=== PATIENT | female | born 1995 | race Caucasian/White ===

== ENCOUNTER → 2023-01-01 23:16 | Outpatient (CLI) | payer MEDICAID, SELFPAY ==
[2023-01-01 19:26] LABS: Basophils # 0.1 K/mm3 (0-0.2); Basophils % 0.7 % (0.1-2.0); Eosinophils # 0.2 K/mm3 (0.0-0.4); Eosinophils % 1.8 % (0.1-12.0); Hematocrit 42.5 % (37.0-47.0); Lymphocytes # 2.6 K/mm3 (0.7-4.5); Lymphocytes % 27.4 % (10-50); Mean Corpuscular HGB Conc 32.9 g/dL (31.8-35.4); Mean Corpuscular Hemoglobin 29.6 pg (27.0-31.2); Mean Platelet Volume 8.2 fl (7.4-10.4); Monocytes # 0.5 K/mm3 (0.1-1.0); Neutrophils # 6.2 K/mm3 (1.8-7.8); Neutrophils % 65.2 % (37.0-80.0); Platelet Count 356 K/mm3 (142-424); Red Blood Count 4.73 M/mm3 (4.20-5.40); Red Cell Distribution Width 14.1 % (11.5-17.5); White Blood Count 9.5 K/mm3 (4.8-10.8)
[2023-01-01 19:58] LABS: Alanine Aminotransferase 24 U/L (12-78); Albumin Level 4.9 g/dl (3.5-5.0); Albumin/Globulin Ratio 1.6 (1.1-1.8); Alkaline Phosphatase 74 U/L (38-126); Aspartate Amino Transferase 35 U/L (14-36); Bilirubin,Total 0.5 mg/dl (0.2-1.3); Blood Urea Nitrogen 13 mg/dl (7-17); Carbon Dioxide 29 mmol/L (22.0-30.0); Chloride 95 mmol/L (98-107); Chol/HDL Ratio 7.9 (1-3.5); Cholesterol 278 mg/dl (140-200); Estimated Glomerular Filt Rate 53 ml/min (>60); GFR (African American) 64 ML/MIN (>60); Globulin 3.1 g/dL (1.3-3.2); Glucose 71 mg/dl (74-100); HDL Cholesterol 35 mg/dl (40-60); Sodium 133 mmol/L (136-145); Triglycerides 277 mg/dl (30-150); VLDL Cholesterol 55 mg/dL (0-40)
[2023-01-01 20:09] LABS: Direct LDL Cholesterol 157.66 mg/dL (100-129)
[2023-01-01 20:16] LABS: Free T4 (Free Thyroxine) 0.13 ng/dl (0.78-2.19)
[2023-01-01 20:20] LABS: 25-OH Vitamin D, Total < 12.8 ng/mL (30-100)
[2023-01-05 17:47] LABS: Hepatitis C Antibody NON REACTIVE
[2023-01-05 17:48] LABS: Hep A Ab, IgM NEGATIVE; Hepatitis B Core Antibody IgM NEGATIVE; Hepatitis B Surface Antigen NEGATIVE
== END ==
PROVIDERS: PCP Emergency Medicine; Visit Provider Emergency Medicine
DX: R53.83 Other fatigue (principal); E55.9 Vitamin D deficiency, unspecified; R06.09 Other forms of dyspnea; K74.60 Unspecified cirrhosis of liver
CPT/HCPCS: 80053; 80061; 80074; 82306; 84439; 84443; 85025; 87522

== ENCOUNTER → 2023-03-14 18:53 | Outpatient (CLI) | payer MEDICAID, SELFPAY ==
[2023-03-14 20:01] LABS: Free T4 (Free Thyroxine) 0.39 ng/dl (0.78-2.19)
== END ==
PROVIDERS: PCP Emergency Medicine; Visit Provider Emergency Medicine
DX: E03.9 Hypothyroidism, unspecified (principal); E66.9 Obesity, unspecified; Z68.42 Body mass index [BMI] 45.0-49.9, adult
CPT/HCPCS: 84439; 84443

== ENCOUNTER → 2023-05-03 14:23 | Outpatient (CLI) | payer MEDICAID, SELFPAY ==
[2023-05-03 12:26] LABS: Alanine Aminotransferase 42 U/L (12-78); Albumin Level 4.1 g/dl (3.5-5.0); Albumin/Globulin Ratio 1.2 (1.1-1.8); Alkaline Phosphatase 85 U/L (38-126); Anion Gap 15.1 mEq/L (5-15); Aspartate Amino Transferase 37 U/L (14-36); Bilirubin,Total 0.4 mg/dl (0.2-1.3); Blood Urea Nitrogen 9 mg/dl (7-17); Calcium 9.2 mg/dl (8.4-10.2); Carbon Dioxide 24 mmol/L (22.0-30.0); Chloride 102 mmol/L (98-107); Estimated Glomerular Filt Rate 74 ml/min (>60); GFR (African American) 90 ML/MIN (>60); Globulin 3.3 g/dL (1.3-3.2); Glucose 114 mg/dl (74-100); Potassium 4.1 mmoL/L (3.5-5.1); Sodium 137 mmol/L (136-145); Total Protein,Serum 7.4 g/dl (6.3-8.2)
[2023-05-03 12:35] LABS: Basophils # 0.1 K/mm3 (0-0.2); Basophils % 0.5 % (0.1-2.0); Eosinophils # 0.2 K/mm3 (0.0-0.4); Eosinophils % 1.7 % (0.1-12.0); Hematocrit 41.7 % (37.0-47.0); Hemoglobin 13.3 g/dL (12.2-16.2); Lymphocytes # 2.3 K/mm3 (0.7-4.5); Lymphocytes % 20.7 % (10-50); Mean Corpuscular Hemoglobin 27.8 pg (27.0-31.2); Mean Platelet Volume 8.1 fl (7.4-10.4); Monocytes # 0.7 K/mm3 (0.1-1.0); Monocytes % 6.4 % (1.7-9.3); Neutrophils # 7.7 K/mm3 (1.8-7.8); Neutrophils % 70.7 % (37.0-80.0); Platelet Count 322 K/mm3 (142-424); Red Blood Count 4.79 M/mm3 (4.20-5.40); Red Cell Distribution Width 13.9 % (11.5-17.5); White Blood Count 10.9 K/mm3 (4.8-10.8)
[2023-05-03 12:41] LABS: Free T4 (Free Thyroxine) 1.13 ng/dl (0.78-2.19)
[2023-05-03 12:45] LABS: 25-OH Vitamin D, Total 45.3 ng/mL (30-100)
[2023-05-03 13:45] LABS: Hemoglobin A1C 5.5 % (4.0-6.0)
== END ==
LOC: LAB.DROPOF 14:23
PROVIDERS: PCP Emergency Medicine; Visit Provider Emergency Medicine
DX: E03.9 Hypothyroidism, unspecified (principal); F41.9 Anxiety disorder, unspecified; E55.9 Vitamin D deficiency, unspecified; E66.9 Obesity, unspecified; Z68.42 Body mass index [BMI] 45.0-49.9, adult; Z72.0 Tobacco use
CPT/HCPCS: 80053; 82306; 83036; 84439; 84443; 85025

== ENCOUNTER → 2023-06-12 09:57 | Outpatient (CLI) | payer MEDICAID, SELFPAY ==
[2023-05-24 13:38] LABS: Alanine Aminotransferase 49 U/L (12-78); Albumin Level 3.8 g/dl (3.5-5.0); Alkaline Phosphatase 69 U/L (38-126); Aspartate Amino Transferase 49 U/L (14-36); Bilirubin,Unconjugated 0.3 mg/dL (0.0-1.1); Chol/HDL Ratio 5.2 (1-3.5); Cholesterol 198 mg/dl (140-200); HDL Cholesterol 38 mg/dl (40-60); Total Protein,Serum 6.8 g/dl (6.3-8.2); Triglycerides 233 mg/dl (30-150); VLDL Cholesterol 47 mg/dL (0-40)
[2023-05-24 13:44] LABS: Bilirubin,Total < 0.1 mg/dl (0.2-1.3)
[2023-05-24 13:56] LABS: T4 (Thyroxine) 9.2 ug/dl (5.53-11.0)
[2023-05-24 16:54] LABS: Benzodiazepines Screen,Urine Positive ng/ml (<200)
[2023-05-24 16:55] LABS: Barbiturates Screen,Urine Negative ng/ml (<200)
[2023-05-24 16:56] LABS: Cannabinoid Screen,Urine Positive ng/ml (<50); Methadone Screen,Urine Negative ng/ml (<300)
[2023-05-24 16:57] LABS: Cocaine Screen,Urine Positive ng/ml (<300)
[2023-05-24 16:58] LABS: Opiate Screen,Urine Negative ng/ml (<300); Phencyclidine Screen,Urine Negative ng/ml (<25)
[2023-05-24 19:33] LABS: Amphetamine/Metha Screen,Urine Positive ng/ml (<1000)
[2023-05-24 19:59] LABS: Bilirubin,Indirect 0.1 mg/dL (0.0-0.9)
== END ==
PROVIDERS: PCP Emergency Medicine; Visit Provider Emergency Medicine
DX: Z79.899 Other long term (current) drug therapy (principal); E78.5 Hyperlipidemia, unspecified; E66.9 Obesity, unspecified; Z68.42 Body mass index [BMI] 45.0-49.9, adult
CPT/HCPCS: 80061; 80076; 80305; 84436; 84443; 87086

== ENCOUNTER → 2023-07-08 12:00 | Outpatient (CLI) | payer MEDICAID, SELFPAY ==
[2023-07-08 21:34] LABS: Barbiturates Screen,Urine Negative ng/ml (<200)
[2023-07-08 21:35] LABS: Amphetamine/Metha Screen,Urine Negative ng/ml (<1000); Cannabinoid Screen,Urine Negative ng/ml (<50)
[2023-07-08 21:36] LABS: Benzodiazepines Screen,Urine Negative ng/ml (<200)
[2023-07-08 21:37] LABS: Cocaine Screen,Urine Negative ng/ml (<300); Methadone Screen,Urine Negative ng/ml (<300)
[2023-07-08 21:38] LABS: Opiate Screen,Urine Negative ng/ml (<300); Phencyclidine Screen,Urine Negative ng/ml (<25)
== END ==
PROVIDERS: PCP Emergency Medicine; Visit Provider Emergency Medicine
DX: Z79.899 Other long term (current) drug therapy (principal)
CPT/HCPCS: 80305

== ENCOUNTER → 2023-07-30 08:26 | Outpatient (CLI) | payer BC, SELFPAY ==
[2023-07-30 19:32] LABS: Free Thyroxine Index 1.7 ug/dL (5.93-13.13); T4 (Thyroxine) 5.4 ug/dl (5.53-11.0); Triiodothryronine (T3) Uptake 32 % (23.5-40.5)
== END ==
PROVIDERS: PCP Emergency Medicine; Visit Provider Emergency Medicine
DX: E03.9 Hypothyroidism, unspecified (principal)
CPT/HCPCS: 84436; 84443; 84479

== ENCOUNTER 2023-10-04 18:52 | Outpatient (CLI) | payer BC, SELFPAY ==
[2023-10-04 20:48] LABS: Amphetamine/Metha Screen,Urine Negative ng/ml (<1000)
[2023-10-04 20:49] LABS: Barbiturates Screen,Urine Negative ng/ml (<200); Benzodiazepines Screen,Urine Positive ng/ml (<200)
[2023-10-04 20:51] LABS: Cocaine Screen,Urine Negative ng/ml (<300); Methadone Screen,Urine Negative ng/ml (<300)
[2023-10-04 20:52] LABS: Opiate Screen,Urine Negative ng/ml (<300); Phencyclidine Screen,Urine Negative ng/ml (<25)
[2023-10-04 21:05] LABS: Cannabinoid Screen,Urine Negative ng/ml (<50)
[2023-10-09 10:34] LABS: Alprazolam Negative (Cutoff=100); Benzodiazepines Positive ng/mL (Cutoff=100); Clonazepam Positive (.); Clonazepam Confirm 409 ng/mL (Cutoff=100); Flurazepam Negative (Cutoff=100); Lorazepam Negative (Cutoff=100); Midazolam Negative (Cutoff=100); Temazepam Negative (Cutoff=100); Triazolam Negative (Cutoff=100)
== END 2023-10-04 23:59 ==
LOC: LAB.DROPOF 18:53
PROVIDERS: PCP Internal Medicine; Visit Provider Internal Medicine
DX: Z79.899 Other long term (current) drug therapy (principal); F41.9 Anxiety disorder, unspecified
CPT/HCPCS: 80307; 80346

== ENCOUNTER 2023-10-30 19:53 | Outpatient (CLI) | payer BC, SELFPAY | END 2023-10-30 23:59 | LOC: LAB.DROPOF 19:53 | PROVIDERS: PCP Internal Medicine; Visit Provider Internal Medicine | DX: E05.90 Thyrotoxicosis, unspecified without thyrotoxic crisis or storm (principal); R94.6 Abnormal results of thyroid function studies | CPT/HCPCS: 84443 ==

== ENCOUNTER 2023-12-30 22:50 | Outpatient (CLI) | payer BC, SELFPAY | END 2023-12-30 23:59 | LOC: LAB.DROPOF 22:50 | PROVIDERS: PCP Internal Medicine; Visit Provider Internal Medicine | DX: E03.9 Hypothyroidism, unspecified (principal) | CPT/HCPCS: 84443 ==

== ENCOUNTER 2024-01-23 18:00 | Outpatient (CLI) | payer BC, SELFPAY ==
[2024-01-23 18:31] LABS: Free T4 (Free Thyroxine) 1.22 ng/dl (0.78-2.19)
[2024-01-24 09:51] LABS: Thyroid Stimulating Hormone 8.64 uIU/mL (0.465-4.68)
[2024-01-25 08:07] LABS: Triiodothyronine (T3) Free 2.7 pg/mL (2.0-4.4)
[2024-01-25 08:16] LABS: Thyroid Peroxidase Antibodies 227 IU/mL (0-34)
[2024-01-27 16:12] LABS: Thyroglobulin Level >2250.0 IU/mL (0.0-0.9)
== END 2024-01-23 23:59 | disposition home or self-care (01) ==
LOC: LAB.DROPOF 01-24 14:20
PROVIDERS: PCP Family Medicine; Visit Provider Family Medicine
DX: E03.9 Hypothyroidism, unspecified (principal); Z79.899 Other long term (current) drug therapy
CPT/HCPCS: 84439; 84443; 84481; 86376; 86800

== ENCOUNTER 2024-02-06 13:38 | Outpatient (CLI) | payer BC, SELFPAY ==
--- NOTE | 2024-02-06 13:42 | CA_ITS ---
APPROVED REPORT EXAM: Comprehensive 2D, Doppler, and color-flow Echocardiogram Psychiatric Technician: WM Lynch, RVS Ht: 5 ft 7 in Wt: 297lbs BSA: 2.39 BP: 162/108 mmHg Indications: Smoker, Tachycardia, Anxiety Echo Enhancing Agent Comments: Technically limited due to extreme body habitus secondary to lung impedance 2D Dimensions Left Atrium 2.89 cm LA Volume 27.10 mL LA Volume Index 11.10 mL/m2 (M/F) 16-34 M-Mode Dimensions RVDd 3.16 cm (0.9-2.6) LA Diam 3.24 cm (1.9-4.0) LVDd 4.64 cm (3.5-5.7) LVDs 2.77 cm (3.5-5.7) IVSd 1.10 cm (0.6-1.1) PWd 0.93 cm (0.6-1.1) EF (Teich) 71.00% EPSs 0.51 cm FS 40.30% EDV (Teich) 99.30 mL TAPSE 2.51 (<1.7) ESV (Teich) 28.80 mL LV Diastology E Decel Time 247 (160-240 msec) E/A Ratio 1.17 MED A' 6.90 cm/s LAT A' 7.00 cm/s Aortic Valve TARIK Index 1.05 cm2/m2 AoV Peak Frederic. 126.0 (50-130 cm/s) AO Peak GR. 6.40 mmHg AO Mean GR. 3.20 (<5 mmHg) AO VTI 22.5 (18-25 cm) TARIK (VTI) 2.58 (2.5-4.5 cm2) Mitral Valve MV A Velocity 72.0 (40-130 cm/s) E/A Ratio 1.17 Pulmonary Valve PV Peak Velocity 81.0 (50-150 cm/s) Tricuspid Valve TR P. Velocity 257.00 cm/s RAP Estimate 10.00 mmHg RVSP 36.50 mmHg Left Ventricle The left ventricle is normal size. The left ventricular systolic function is normal. The left ventricular ejection fraction is within the normal range. There is normal left ventricular wall thickness. There is normal LV segmental wall motion. The left ventricular diastolic function is normal. LVEF is 55%. Right Ventricle The right ventricle is normal size. The right ventricular systolic function is normal. Atria The left atrium size is normal. The right atrium size is normal. There is no Doppler evidence of interatrial shunt. Aortic Valve The aortic valve opens well. There is no aortic valvular stenosis. No aortic regurgitation is present. Mitral Valve The mitral valve is normal in structure. No evidence of mitral valve stenosis. Trace mitral valve regurgitation. Tricuspid Valve The tricuspid valve leaflets are thin and pliable. Trace tricuspid regurgitation. There is insufficient TR jet to estimate RVSP. Pulmonic Valve The pulmonary valve is normal in structure. Trace pulmonic regurgitation. Great Vessels The aortic root is normal in size. The ascending aorta is normal in size. IVC is normal in size and collapses >50% with inspiration. Pericardium There is no pericardial effusion. Other Information Study Quality: Fair Conclusion Normal biventricular systolic function. No significant valvular stenosis or regurgitation. Electronically signed by : Nicole Llanos MD 02/08/2024 22:01:43
--- NOTE | 2024-02-06 14:13 | ECG_ITS ---
APPROVED REPORT Exam: Resting ECG HR:79 bpm ECG Measurements Heart Rate 79 AXES OH 154 P 56 QRSd 93 QRS 101 QT 378 T 52 QTc 413 Conclusion SINUS RHYTHM RIGHT AXIS DEVIATION [QRS AXIS > 100] LOW QRS VOLTAGE IN PRECORDIAL LEADS [QRS DEFLECTION < 1.0 mV IN CHEST LEADS] ABNORMAL ECG UNCONFIRMED REPORT Electronically signed by : Rudi Birch MD 02/07/2024 12:24:40
== END 2024-02-06 23:59 | disposition home or self-care (01) ==
LOC: RT 13:39
PROVIDERS: PCP Internal Medicine; Visit Provider Family Medicine
DX: R00.0 Tachycardia, unspecified (principal); R00.2 Palpitations; R06.09 Other forms of dyspnea
CPT/HCPCS: 93005; 93270; 93306

== ENCOUNTER 2024-03-12 10:52 | Outpatient (CLI) | payer BC, SELFPAY | END 2024-03-12 23:59 | disposition home or self-care (01) | LOC: LAB.DROPOF 03-13 09:58 | PROVIDERS: PCP Internal Medicine; Visit Provider Internal Medicine | DX: R00.2 Palpitations (principal) | CPT/HCPCS: 84443 ==